=== PATIENT | male | born 1995 | race Caucasian/White ===

== ENCOUNTER 2020-01-17 02:15 | Emergency (ER) | payer OTHER, SELFPAY ==
--- NOTE | ~2020-01-17 | CT_ITS ---
EXAMINATION: CT abdomen pelvis w con DATE: 01/17/2020 03:19 INDICATION: Right flank pain. TECHNIQUE: Computed tomography (CT) of the abdomen and pelvis was performed with 100 mL Omnipaque 350 intravenous contrast. Automated exposure control and iterative reconstruction technique were employe d. The dose-length product was 1486.00 mGy-cm. COMPARISON: None. FINDINGS: The visualized portions of the lung bases demonstrate a 4 mm nodule in right lower lobe, li louise benign. No pleural effusion. The heart size is normal. No pericardial effusion. The liver, gallb ladder, spleen, pancreas, adrenal glands, and kidneys are normal. There are no dilated loops of bowel . The appendix is normal. There are no pathologically enlarged lymph nodes. There is no free intraper itoneal fluid. There is mild lumbar spondylosis. IMPRESSION: 1. No etiology for the patient's symptoms. Reviewed, dictated and finalized at location A.
[2020-01-17 02:15] VITALS: BP 137/80; PULSE 73; RESP 18; TEMP 36.4; O2SAT 100
--- NOTE | 2020-01-17 02:37 | ED.ABDPAIN ---
HPI - Abdominal Pain General Chief Complaint: Back Pain/Injury Stated Complaint: Abd Pain Time Seen by Provider: 01/17/20 02:19 History of Present Illness HPI narrative: Patient presents with his girlfriend for right flank pain. Started yesterday but is become much more intense. He gives it a 6.5 out of 10. No nausea or vomiting. No fever or chills. No diarrhea. No blood in his urine. No family history of kidney stone. No injury. He recently graduated from college with a degree in biology and math. He like to get his masters in public health and to epidemiology. Previous surgeries include circumcision and tonsillectomy. MD elicited complaint: flank pain Pertinent past history: none Onset (ago): day(s) Pain Consistency: constant Location: R flank Severity: severe Related Data Allergies Allergy/AdvReac Type Severity Reaction Status Date / Time cefixime [From Suprax] Allergy Rash Verified 01/17/20 02:28 erythromycin base Allergy Rash Verified 01/17/20 02:28 [From Pediazole] sulfisoxazole Allergy Rash Verified 01/17/20 02:28 [From Pediazole] Review of Systems Review of Systems: Narrative: CONSTITUTIONAL: Denies fever, chills, or sweats. EYES: Denies visual changes, redness, or discharge. ENT: Denies rhinorrhea, congestion, sore throat, or otalgia. CARDIOVASCULAR: Denies chest pain, palpitations, or edema. RESPIRATORY: Denies cough or dyspnea. GASTROINTESTINAL: Has abdominal pain, but not nausea, vomiting, or diarrhea. GENITOURINARY: Denies dysuria or hematuria. SKIN: Denies rash or itching. MUSCULOSKELETAL: Denies back pain, joint pain, or myalgia. NEUROLOGIC: Denies headache, numbness, or weakness. PSYCHIATRIC: Denies anxiety or depression. [facility] Surgical History Surgical History (Updated 01/17/20 @ 02:39 by Gayathri Lafleur MD) History of circumcision History of tonsillectomy Social History Social History Gender identity (if verbalized by the patient): Male Exam Narrative: Exam Narrative: GENERAL: Well-appearing, well-nourished, and in no acute distress. [place] HEAD: Normocephalic, atraumatic. EYES: PERRLA and EOMI. ENT: Nares clear, no rhinorrhea or epistaxis. Mucous membranes moist. NECK: Supple. CHEST: Clear to auscultation. No respiratory distress. HEART: Regular rate and rhythm. No murmur heard. Normal peripheral pulses. ABDOMEN: Soft, nontender, nondistended, normal active bowel sounds. Positive CVA tenderness on the right. EXTREMITIES: Normal range of motion. No edema. SKIN: Warm, dry, no rash. NEURO: No focal deficits. Alert and oriented x3. PSYCH: Normal mood and affect. Const: General: no acute distress and alert Orientation/consciousness: patient oriented x3 Course Reevaluation(s) Reevaluation #1: Went in to tell the patient that his CAT scan came back normal. He said his pain is better. He was supposed to help his uncle moved today, but I recommended he just do the driving. Date: 01/17/20 Time: 04:20 Vital Signs Vital signs: Vital Signs Temperature 97.6 F 01/17/20 02:15 Pulse Rate 73 01/17/20 02:15 Respiratory Rate 18 01/17/20 02:15 Blood Pressure 137/80 01/17/20 02:15 Pulse Oximetry 100 01/17/20 02:15 Temperature 97.6 F 01/17/20 02:15 Pulse Rate 73 01/17/20 02:15 Respiratory Rate 18 01/17/20 02:15 Blood Pressure 137/80 01/17/20 02:15 Pulse Oximetry 100 01/17/20 02:15 MDM - Abdominal Pain Differential Diagnosis Differential diagnosis: Likely calculus of kidney Medical Records Attestation: I reviewed the patient's medical records. Lab Data Attestation: I reviewed the patient's lab results. Result diagrams: 01/17/20 02:37 01/17/20 02:37 Labs: Lab Results 01/17/20 01/17/20 01/17/20 Range/Units 02:23 02:37 02:37 WBC 8.5 (4.5-10.0) K/mm3 RBC 5.29 (4.6-6.20) M/mm3 Hgb 15.8 (14.0-18.0) g/dL Hct 46.3 (42.0-52.0) % MCV 87.5 (80-100) fl MCH 29.9 (26-34) pg M
[2020-01-17 02:38] LABS: Add Urine Microscopic? NO; Appearance Urine Clear (Clear); Bacteria Urine Trace /hpf; Bilirubin Urine Negative (Negative); Blood Urine Negative (Negative); Color Urine Yellow (Yellow); Glucose Urine UA Negative (Negative); Ketones Urine Negative (Negative); Leukocyte Esterase Ur Negative LEU/UL (Negative); Mucus Urine Few /lpf; Nitrate Urine Negative (Negative); Protein Urine Negative (Negative); RBC Urine 0-2 /hpf (0-2); Specific Grav Ur 1.023 (1.001-1.035); Urobilinogen Urine Negative mg/dL (<2.0); WBC Urine 0-3 /hpf
[2020-01-17] MEDS: SODIUM CHLORIDE 0.9% IV 1,000 ML 999 ML IV CONT (02:54)
[2020-01-17] MEDS: MORPHINE SULFATE 2 MG/ML INJ IV PUSH (02:54)
[2020-01-17 02:56] LABS: Basophils Absolute Auto 0.1 K/mm3 (0.0-0.1); Basophils Percent Auto 0.6 % (0.2-1.2); Eosinophils Absolute Auto 0.3 K/mm3 (0-0.3); Eosinophils Percent Auto 3.9 % (0-4.4); Hematocrit 46.3 % (42.0-52.0); Hemoglobin 15.8 g/dL (14.0-18.0); Immature Granulocyte Absolute 0.05 K/mm3 (0.00-0.031); Immature Granulocyte Percent A 0.6 % (0-0.5); Lymphocytes Absolute Auto 3.03 K/mm3 (0.9-3.2); Lymphocytes Percent Auto 35.7 % (18.3-44.2); Mean Corpuscular HGB Conc 34.1 g/dl (32-36); Mean Corpuscular Hemoglobin 29.9 pg (26-34); Mean Corpuscular Volume 87.5 fl (80-100); Mean Platelet Volume 10.8 fl (7.4-10.4); Monocytes Absolute Auto 0.6 K/mm3 (0.1-0.6); Monocytes Percent Auto 7.3 % (2.6-8.5); Neutrophils Absolute Auto 4.4 K/mm3 (1.3-6.7); Neutrophils Percent Auto 51.9 % (45.5-73.1); Platelet Count Result 236 k/mm3 (150-375); Red Blood Count 5.29 M/mm3 (4.6-6.20); Red Cell Distribution Width 12.5 % (11.5-14.5); White Blood Count 8.5 K/mm3 (4.5-10.0)
[2020-01-17 03:08] LABS: Alanine Aminotransferase 30 U/L (4-50); Albumin Level 4.8 g/dL (3.5-5.1); Alkaline Phosphatase 88 U/L (38-126); Aspartate Amino Transferase 28 U/L (17-59); Bilirubin,Total 0.4 mg/dL (0.2-1.3); Blood Urea Nitrogen 7 mg/dL (9-20); Calcium 9.2 mg/dL (8.4-10.2); Carbon Dioxide 27 mmol/L (22-30); Chloride 103 mmol/L (98-107); Estimated CRCL calculation 136 ml/min; Estimated Glomerular Filt Rate > 60; Glucose 102 mg/dL (75-110); Lipase 70 U/L (23-300); Potassium 3.8 mmol/L (3.4-5.0); Sodium 139 mmol/L (137-145)
[2020-01-17 04:38] VITALS: BP 132/82; PULSE 68; RESP 18; O2SAT 99
== END 2020-01-17 04:40 | disposition home or self-care (01) ==
PROVIDERS: Emergency Provider Emergency Medicine; PCP Family Medicine
DX: R10.9 Unspecified abdominal pain (principal)
CPT/HCPCS: 36415; 74177; 80053; 81003; 83690; 85025; 96361; 96374; 99284; J2270; J7030; Q9967